=== PATIENT | male | born 1995 | race Caucasian/White ===

== ENCOUNTER 2016-12-21 18:48 | Emergency (ER) | payer OTHER ==
[~2016-12-21] VITALS: Ht 182.9 cm; Wt 136.4 kg
[2016-12-21 18:53] VITALS: BP 130/71; PULSE 89; RESP 16; O2SAT 100
[2016-12-21] MEDS ORDERED: SERT25TA6 PO (18:56)
--- NOTE | 2016-12-21 19:42 | DRSVH ---
PROCEDURE: X-RAY RIGHT ANKLE, MINIMUM THREE VIEWS ([id number]) INDICATIONS: trauma ,pain and swelling TECHNIQUE: 3 views of the ankle were acquired. COMPARISON: None. FINDINGS: Bones: No fractures or dislocations. Ankle mortise is normally aligned. No suspicious bony lesions . Soft tissues: No tibiotalar joint effusion. Achilles tendon appears normal. IMPRESSION: No acute bony abnormality is seen. * . Dictated by: Gary Erwin M.D. on 12/21/2016 at 19:40 Approved by: Gary Erwin M.D. on 12/21/2016 at 19:41
--- NOTE | 2016-12-21 19:47 | DRSVH ---
PROCEDURE: X-RAY RIGHT FOOT COMPLETE, MINIMUM THREE VIEWS ([id number]) INDICATIONS: trauma ,pain and swelling TECHNIQUE: 3 views of the foot were acquired. COMPARISON: None. FINDINGS: Bones: No fractures or dislocations. No suspicious bony lesions. Metatarsals and cuneiforms and cu boid aligns normally. Soft tissues: No tibiotalar joint effusion. Achilles tendon appears normal. IMPRESSION: No acute service normal 3 view study of the right foot. Dictated by: Gary Erwin M.D. on 12/21/2016 at 19:41 Approved by: Gary Erwin M.D. on 12/21/2016 at 19:45
--- NOTE | 2016-12-21 19:48 | ED.REPORT ---
HPI-Extremity Problem Lower Date of Service Dec 21, 2016 ED Provider: Damion Fox MD Pt is a 21 y/o male presenting to the ED c/o right ankle injury onset prior to arrival. The patient was playing with his children in some sort of ball contraption and believes he twisted his right ankle. He now c/o right ankle pain and swelling. Pt denies numbness or weakness of his foot or toes. He denies any other site of injury. He was able to ambulate after the injury with pain. Nursing Notes Stated Complaint: FOOT PAIN/ HAVING TROUBLE WALKING Chief Complaint: Extremity Trauma Nursing Notes Reviewed: Yes Allergies: Coded Allergies: No Known Allergies (Verified Allergy, Unknown, 12/21/16) Scheduled Sertraline HCl (Sertraline) 25 Mg Tablet 25 MG PO DAILY Scheduled PRN Ibuprofen (Ibuprofen) 600 Mg Tablet 600 MG PO QID PRN PRN For Pain General Time Seen by MD: 19:23 Chief Complaint Ankle injury right Hx Obtained From: Patient Arrived By: Walk-in Onset Occurred: Just prior to arrival Symptom Duration: Since onset Caused by: Body motion Location: : Ankle right Quality: Painful Severity: Current: Mild Severity: Maximum: Mild Similar Sx Previous: No Past Medical History Past Medical History Pneumonia Past Surgical History None Smoking History Current Every Day Smoker Ambulatory Status Independent Review of Systems Constitutional: Denies: Chills, Fever Musculoskeletal: Reports: Extremity pain, Denies: Back pain, Neck pain Skin: Denies Itching, Denies Rash Neurologic: Denies: Headache, Numbness, Weakness Complete sys rev & neg: except as marked. Physical Exam Initial Vital Signs Vital Signs (First) Date Time Temp Pulse Resp B/P Pulse Ox O2 Delivery O2 Flow Rate FiO2 12/21/16 18:53 37.4 89 16 130/71 100 Room Air Initial VS: Reviewed, Vital signs normal Head / Eyes: Atraumatic, Normocephalic, PERRL ENT: Mucous membranes moist, Conjunctiva normal, No scleral icterus Neck: Supple, Full range of motion Respiratory: Breath sounds normal, Clear to auscultation, No respiratory distress Cardiovascular: Regular rate & rhythm, Heart sounds normal, Intact distal pulses Abdomen / GI: Soft, Non-tender Upper Extremities: Vascular intact, Neuro intact, No swelling, No tenderness Skin: Warm, Dry, No cyanosis Neurologic: Alert, Oriented, Nonfocal Psychiatric: Mood/affect normal, Behavior normal, Normal thought content Lower Extremity / Pelvis / MS: No deformity, Neurologic intact, Vascular intact Ankle / Foot: No deformity, Neurologic intact, Vascular intact Mild tenderness and swelling over talofibular ligament over the right lateral foot. No focal bony tenderness Interpretation & Diagnostics X-Ray Interpretation Xray Interpretation: IMPRESSION: No acute service normal 3 view study of the right foot. Dictated by: Gary Erwin M.D. on 12/21/2016 at 19:41 Approved by: Gary Erwin M.D. on 12/21/2016 at 19:45 Study Performed: 3 view X-Ray Ordered: Foot right Interpretation / Wet Read by: Interpret - Radiologist Xray Interpretation: IMPRESSION: No acute bony abnormality is seen. * . Dictated by: Gary Erwin M.D. on 12/21/2016 at 19:40 Approved by: Gary Erwin M.D. on 12/21/2016 at 19:41 Study Performed: 3 view X-Ray Ordered: Ankle right Interpretation / Wet Read by: Interpret - Radiologist Re-Eval/Medical Decision Med Decision/Clinical Course Patient presents with right ankle injury. Plain films demonstrate no acute fracture. Patient is neurovascularly intact. No other associated injuries. No significant instability to varus or valgus force. Presentation consistent with ankle sprain. Aircast and crutches provided. Ibuprofen administered. Patient advised to elevate, ice and rest extremity. Range of motion exercises demonstrated and advised. Patient to follow up with primary care physician in the coming week. Follow up and return precautions were reviewed in detail and the patient was discharged in good condition. Re-Evaluation/Progress : Time of Eval: 20:06 Re-Evaluation/Progress Note: Pt rechecked. Informed pt of plan for treatment. Pt understands and agrees with plan for treatment. F/U instructions and RTER warnings given. All questions addressed. Counseled Regarding: Diagnosis, Need for follow-up, When/why to return to ED Discharge & Departure Impression: Primary Impression: Right ankle sprain Encounter type: initial encounter Involved ligament of ankle: unspecified ligament Qualified Code: S93.401A - Sprain of unspecified ligament of right ankle, initial encounter Additional Impression: Right ankle pain Disposition: Home Discharge Condition All VS Reviewed: Yes Condition: Stable Patient Instructions: Ankle Sprain (GEN) Additional Instructions: Thank you for seeking care at the emergency room. It is difficult for us to make definitive diagnoses in the ED but we believe that you are experiencing a right ankle sprain. The x-rays showed no sign of fracture. Take 600 mg Ibuprofen every 6 hours as needed for pain. You should follow-up with your primary doctor in the next week. Perform ankle movement exercises throughout the day. You should return to the ED immediately if you develop severe uncontrolled pain , numbness or weakness of your foot or toes, or any other concerning signs or symptoms. Thank you for letting us partake in your care today. Referrals: Geovany Ibarra MD (PCP) [place] Attestation Portions of this note were transcribed by Gregory Knapp. I, Dr. Fox personally performed the history, physical exam and medical decision-making; I reviewed and confirmed the accuracy of the information in the transcribed note. Signed by Tino Johnson, 12/21/162029 copies to: Geovany Ibarra MD, Beck O MD Dec 21, 2016 19:48 GREGORY KNAPP Dec 21, 2016 20:08
[2016-12-21] MEDS ORDERED: IBUP-1827 PO (20:07)
[2016-12-21 20:47] VITALS: BP 128/72; PULSE 82; RESP 17; O2SAT 99
== END 2016-12-21 20:28 | disposition home or self-care (01) ==
LOC: SED 18:48
DX: S93.401A Sprain of unspecified ligament of right ankle, initial encounter (principal); X50.9XXA Other and unspecified overexertion or strenuous movements or postures, initial encounter; Y93.89 Activity, other specified; Y99.8 Other external cause status; Y92.9 Unspecified place or not applicable; F17.210 Nicotine dependence, cigarettes, uncomplicated

== ENCOUNTER 2017-06-17 15:13 | Emergency (ER) | payer OTHER ==
[~2017-06-17] VITALS: Ht 185.4 cm; Wt 136.4 kg
[~2017-06-17 15:13] MED LIST: IBUP-1827 PO; SERT25TA6 PO
[2017-06-17 15:43] VITALS: BP 144/83; PULSE 101; RESP 18; O2SAT 98
--- NOTE | 2017-06-17 16:20 | ED.REPORT ---
HPI-Abd Pain M Under 40 Date of Service Jun 17, 2017 ED Provider: Benito Lowe MD Pt is a healthy 22 y/o male who presents to the ED c/o diffuse abdominal pain onset 4 days ago. He describes his pain as "sharp", "hot" and constant throbbing sensation. His symptoms are relieved when he lays on his back, and exacerbated by sitting or standing. Although he has no pain now, at his worst, he rated the severity as 7/10. Additional symptoms include nausea, fever, decreased appetite, diarrhea since resolved, and chills. He denies vomiting, constipation, dysuria, chest pain, or SOB. He states that no one else in his family is sick. Nursing Notes Stated Complaint: ABDOMINAL PAIN Chief Complaint: Male Abdominal Pain Nursing Notes Reviewed: Yes ([employer] not reconciled) Allergies: Coded Allergies: No Known Allergies (Verified Allergy, Unknown, 12/21/16) Scheduled Sertraline HCl (Sertraline) 25 Mg Tablet 25 MG PO DAILY Scheduled PRN Hydrocodone-Acetaminophen 5-325 mg (Hydrocodone-Acetaminophen 5-325 mg) 1 Each Tablet 1-2 TABLET PO Q6H PRN PRN For Pain Ibuprofen (Ibuprofen) 600 Mg Tablet 600 MG PO QID PRN PRN For Pain General Time Seen by MD: 16:19 Chief Complaint Abdominal pain Hx Obtained From: Patient Arrived By: Walk-in Sudden in Onset?: No Onset Occurred: 4 days ago Symptom Duration: Constant Location: : Diffuse Quality: Painful, Sharp, Throbbing Radiation: : RLQ Severity: Current: No pain currently Severity: Maximum: Pain level 7 out of 10 Exacerbated by: Sitting up, Upright Relieved by: Supine Recent Healthcare: No recent doctor visit, No recent hospitalization Similar Sx Previous: No Past Medical History Past Medical History Pneumonia Past Surgical History None Smoking History Current Every Day Smoker Social History Other Social History: Good social support Ambulatory Status Independent Review of Systems Decreased appetite Constitutional: Reports: Chills, Fever Respiratory: Denies: Shortness of breath Cardiovascular: Denies: Chest pain GI: Reports: Abdominal pain, Diarrhea (resolved), Nausea, Denies: Constipation, Vomiting Male: Denies Dysuria Complete sys rev & neg: except as marked. Physical Exam Initial Vital Signs Vital Signs (First) Date Time Temp Pulse Resp B/P Pulse Ox O2 Delivery O2 Flow Rate FiO2 06/17/17 15:43 37.4 101 18 144/83 98 Room Air Initial VS: Reviewed, Vital signs normal Head / Eyes: Atraumatic, Normocephalic Neck: Supple, Full range of motion Extremities: Vascular intact, Neuro intact, No swelling, No tenderness Skin: Warm, Dry, No cyanosis Neurologic: Alert, Oriented, Nonfocal Psychiatric: Mood/affect normal, Behavior normal, Normal thought content General/Constitutional: Awake, Alert Respiratory / Chest: Atraumatic, Breath sounds NL, Breath sounds = bilat, No respiratory distress Cardiovascular: Heart rate NL, Regular rhythm, Heart sounds NL Abdomen: Soft, No guarding, No rebound Tenderness/Guarding/Rebound: Positive: McBurney's point tender Back: Full range of motion, Non-tender Interpretation & Diagnostics Lab Results Interpretation Result Diagram: 06/17/17 1700 06/17/17 1700 Test 06/17/17 17:00 White Blood Count 7.1th/mm3 (3.8-10.1) Red Blood Count 5.16mil/mm3 (4.40-5.80) Hemoglobin 14.8g/dL (13.8-17.2) Hematocrit 42.6% (41.0-50.0) Mean Corpuscular Volume 82.6fL (81-100) Mean Corpuscular Hemoglobin 28.7pg (27.0-35.0) Mean Corpuscular Hemoglobin Concent 34.7% (32.0-37.0) Red Cell Distribution Width 12.7% (12.3-15.4) Platelet Count 226bil/L (150-400) Neutrophils (%) (Auto) 77.2% (40-74) Lymphocytes (%) (Auto) 13.0% (14-46) Monocytes (%) (Auto) 7.8% (4-12) Eosinophils (%) (Auto) 1.6% (0-5) Basophils (%) (Auto) 0.3% (0-3) Sodium Level 137mEq/L (134-144) Potassium Level 3.9mEq/L (3.5-5.2) Chloride Level 98mEq/L (97-108) Carbon Dioxide Level 24mmol/L (18-29) Blood Urea Nitrogen 16mg/dL (6-20) Creatinine 0.78mg/dL (0.76-1.27) Estimat Glomerular Filtration Rate 130mL/min (>59) Glucose Level 96mg/dL (60-99) Calcium Level 9.4mg/dL (8.5-10.1) Magnesium Level 1.7mg/dL (1.6-2.6) Total Bilirubin 0.5mg/dL (0.0-1.2) Aspartate Amino Transf (AST/SGOT) 26U/L (0-50) Alanine Aminotransferase (ALT/SGPT) 32U/L (0-44) Alkaline Phosphatase 88U/L (25-150) Total Protein 7.8g/dL (6.4-8.4) Albumin 4.6g/dL (3.4-5.0) Lipase 24U/L (13-60) Hold Quarles Top Tube Received (Received) Lab Results Interpretation: CBC normal CMP normal Stool studies pending CT Abd / Pelvis Interpretation IMPRESSION: 1. Mild segmental wall thickening in the transverse and descending colon consistent with a mild infectious or inflammatory colitis. 2. Scattered small bowel air-fluid levels without evidence of obstruction. The findings are compatible with a mild ileus or gastroenteritis. 3. Mildly prominent mesenteric lymph nodes with hazy fat stranding in the mesentery are nonspecific but likely reactive. Dictated by: Samson Robles M.D. on 06/17/2017 at 17:55 Approved by: Samson Robles M.D. on 06/17/2017 at 18:00 Study type: Abdominal CT IV contrast, Abdom CT oral contrast Interpretation / Wet Read by: Interpret - Radiologist Re-Eval/Medical Decision Med Decision/Clinical Course This is a pleasant, healthy 22-year-old male presents with 4 days of increasing abdominal pain, cramping, and diarrhea that is nonbloody. Reports chills, some nausea but no definite vomiting. He has no travel history, no known diarrheal exposure, no suspicious food ingestion, has not recently the [facility] where there is been a recent enteroinvasive pathogen outbreak. Our symptoms been worsening over the past 4 days, so he came in today. He is nontoxic, has a soft abdomen, but trace tenderness of the right lower quadrant. He has no guarding or rebound. I was normal, CT revealed a normal appendix, suggestive of colitis. He was able to provide a stool sample in the stool PCR is pending, as explained is a holiday weekend so do not know if it will be 24-48 hours for the stool studies are resulted, and I am not finding indication for empiric box at this time. Supportive care is discussed. Patient's been given a few hydrocodone for symptomatic management. Routine return precautions reviewed. Patient's discharged in stable condition. It was explained that the most likely etiology remains infectious. Auditory process cannot be exclusively excluded, the patient has no features at this time to suggest that is likely. Again the next step is waiting for the stool studies, but the need to follow up with the PCP if symptoms are not resolving stool studies are negative's was also discussed. Source of Hx: Old records Re-Evaluation/Progress #1: Time of Eval: 18:45 Re-Evaluation/Progress Note: Pt rechecked. Updated pt on CT results and need for stool sample. Re-Evaluation/Progress #2: Time of Eval: 19:59 Re-Evaluation/Progress Note: Patient rechecked. Discussed plan for discharge. Patient understands and agrees with plan. F/U instructions and RTER warnings given. All questions addressed at this time. Differential Diagnosis: Positive: Acute abdominal pain, Negative: Abscess, Appendicitis, Bowel obstruction, Cellulitis, Cholangitis, Cholecystitis, Cholelithiasis, Contusion abdominal wall, Diabetic ketoacidosis, Esophageal rupture, Gun shot wound abdomen, Infectious mononucleosis, Inguinal hernia, Ischemic bowel, Peritonitis, Pyelonephritis, Stab wound abdomen, Urinary tract infection Counseled Regarding: Diagnosis, Lab results, Need for follow-up, When/why to return to ED Patient Discharge & Departure Primary Impression: Colitis Disposition: Home Discharge Condition All VS Reviewed: Yes Condition: Stable Additional Instructions: 1. Your blood tests were normal but your CT scan suggests that several areas of the colon are inflamed ("colitis"). The most common cause of this is an infection, so stool tests are the most useful in determing whether or not treatment with antibiotics is indicated. (There are many intestinal infections which do not benefit from antibiotics, and a few that can even get worse). 2. Drink plenty of fluids. Eat lightly (diet as tolerated). 3. If needed take hydrocodone/APAP 5/325 1-2 tabs up to every 6 hours for pain. NOTE: this medication contains a narcotic and causes drowsiness. NO driving for at least 4 hours after taking. 4. We sent a stool test today that takes ~1-2 days for results. Call for results. (We will also try to call you if it is abnormal) 5. If you develope new or worsening symptoms, return to the ED. 6. If not clearly improving over the next 5 days, you should be seen and re- checked by Dr. Ibarra. Referrals: Geovany Ibarra MD (PCP) Scribe Attestation Portions of this note were transcribed by Nancy Walker. I, Dr. Lowe, personally performed the history, physical exam and medical decision-making; I reviewed and confirmed the accuracy of the information in the transcribed note. copies to: Geovany Ibarra MD, Matthew F MD Jun 17, 2017 16:20 Nancy Walker Jun 17, 2017 16:31
[2017-06-17] MEDS ORDERED: 0.9% Sodium Chloride 1,000 ML IV ONE (16:30)
[2017-06-17] MEDS ORDERED: HYDROmorphone 0.5 mg/0.5 mL iSecure Syringe IVPUSH PRN (16:30)
[2017-06-17] MEDS ORDERED: Ondansetron 2 mg/mL 2 mL Inj IVPUSH ONE (16:30)
[2017-06-17 17:10] LABS: BASOPHILS % (AUTO) 0.3 % (0-3); EOSINOPHILS % (AUTO) 1.6 % (0-5); MONOCYTES % (AUTO) 7.8 % (4-12); Mean Corpuscular Hemoglobin 28.7 pg (27.0-35.0); Mean Corpuscular Volume 82.6 fL (81-100); NEUTROPHILS % (AUTO) 77.2 % (40-74); Platelet Count 226 bil/L (150-400)
[2017-06-17 17:31] LABS: Magnesium 1.7 mg/dL (1.6-2.6)
--- NOTE | 2017-06-17 18:02 | DRSVH ---
PROCEDURE: CT ABDOMEN AND PELVIS WITH CONTRAST ([id number]) INDICATIONS: Abd Pain TECHNIQUE: After the administration of oral and intravenous contrast, 5 mm thick sections acquired from the diap hragms to the symphysis. 5 mm thick coronal and sagittal reformats were performed. For radiation do se reduction, the following was used: automated exposure control, adjustment of mA and/or kV accordi ng to patient size. COMPARISON: [facility], CT, PELVIS W CONTRAST, 01/02/2013, 12:35. FINDINGS: Image quality: Excellent. ABDOMEN: Lung bases: Lung bases are clear. Heart size is normal. Solid organs: Liver and spleen are normal in size and enhancement. Gallbladder appears within suzy l limits a calcified gallstones. Biliary system is non-dilated. Pancreas enhances normally. No adr enal nodules. Kidneys are normal in size and enhancement, without hydronephrosis. Peritoneum and bowel: Stomach and small bowel loops are normal in caliber and wall thickness. There are a few scattered small bowel air-fluid levels. There is mild segmental wall thickening of the pr oximal transverse colon and the descending colon with minimal pericolonic fat stranding. Findings ar e compatible with mild colitis. There is colonic diverticulosis without acute diverticulitis. A sma ll amount of pelvic free fluid is present. Nodes and vessels: No retroperitoneal or mesenteric adenopathy by size criteria. There are scattere d mildly prominent subcentimeter mesenteric lymph nodes and mild hazy fat stranding of the mesentery which are likely reactive. Aorta and inferior vena cava are normal in caliber. Miscellaneous: No ventral hernias. PELVIS: Genitourinary: Bladder wall thickness is normal. Miscellaneous: No inguinal hernias or adenopathy. Bones: No suspicious bony lesions. No vertebral body compression fractures. IMPRESSION: 1. Mild segmental wall thickening in the transverse and descending colon consistent with a mild infe ctious or inflammatory colitis. 2. Scattered small bowel air-fluid levels without evidence of obstruction. The findings are compati ble with a mild ileus or gastroenteritis. 3. Mildly prominent mesenteric lymph nodes with hazy fat stranding in the mesentery are nonspecific but likely reactive. Dictated by: Samson Robles M.D. on 06/17/2017 at 17:55 Approved by: Samson Robles M.D. on 06/17/2017 at 18:00
[2017-06-17] MEDS ORDERED: _HYDROcodone/APAP 5-325 mg Tablet PO PRN (18:50)
[2017-06-17 18:53] VITALS: BP 137/75; PULSE 94; RESP 16; O2SAT 96
[2017-06-17] MEDS ORDERED: HYDR-4003 PO (19:40)
[2017-06-17 20:15] VITALS: BP 143/82; PULSE 97; RESP 20; O2SAT 96
== END 2017-06-17 20:10 | disposition home or self-care (01) ==
LOC: SED 15:13
DX: K52.9 Noninfective gastroenteritis and colitis, unspecified (principal); F17.200 Nicotine dependence, unspecified, uncomplicated; Z87.01 Personal history of pneumonia (recurrent)
CPT/HCPCS: 36415; 74177; 80053; 81002; 83690; 83735; 85025; 87507; 96360; 99285; G0463; J7030; Q9967